=== PATIENT | female | born 1975 | race Caucasian/White ===

== ENCOUNTER 2018-01-20 14:57 | Emergency (ER) | payer OTHER ==
[2018-01-20 15:07] VITALS: BMI 22.8
[2018-01-20 15:09] VITALS: TEMP 98.1
[2018-01-20] MEDS ORDERED: Naproxen 550 mg Tab PO STA (15:47)
[2018-01-20] MEDS ORDERED: Naproxen 550 mg Tab PO ONE (15:53)
--- NOTE | 2018-01-20 16:19 | C.PDOC ---
History Of Present Illness Patient presents to ED c/o right foot pain and right outer thigh pain. She states she was standing of a chair, when she fell off of it into her left thigh/ hip, and the chair hit her in the left foot. She denies head injury, LOC, chest pain, neck pain, SOB, abdominal pain, sensory changes. Time Seen by Provider: 01/20/18 15:22 Chief Complaint (Nursing): Lower Extremity Problem/Injury History Per: Patient, Family History/Exam Limitations: no limitations, language barrier Onset/Duration Of Symptoms: Days (x 1 week ) Current Symptoms Are (Timing): Still Present Severity: Mild Past Medical History Reviewed: Historical Data, Nursing Documentation, Vital Signs Vital Signs: Last Vital Signs Temp 98.1 F 01/20/18 15:23 Pulse 68 01/20/18 16:39 Resp 18 01/20/18 16:39 BP 118/79 01/20/18 16:39 Pulse Ox 99 01/21/18 08:51 - Medical History PMH: No Chronic Diseases Family History: States: No Known Family Hx - Social History Hx Alcohol Use: No Hx Substance Use: No - Immunization History Hx Tetanus Toxoid Vaccination: No Hx Influenza Vaccination: No Hx Pneumococcal Vaccination: No Review Of Systems Constitutional: Negative for: Fever, Chills Cardiovascular: Negative for: Chest Pain Respiratory: Negative for: Shortness of Breath Gastrointestinal: Negative for: Abdominal Pain Musculoskeletal: Positive for: Other (LEFT THIGH AND LEFT FOOT PAIN) Skin: Negative for: Rash Neurological: Negative for: Weakness, Numbness, Headache, Dizziness Physical Exam - Physical Exam Appears: Well, Non-toxic, No Acute Distress Skin: Other (approx 5cm healing ecchymosis on left lateral thigh/hip, no deformity) Head: Atraumatic, Normacephalic Eye(s): bilateral: Normal Inspection Oral Mucosa: Moist Neck: Normal, Normal ROM, No Midline Cervical Tenderness, No Paracervical Tenderness, No Step Off Deformity, Supple Cardiovascular: Rhythm Regular Respiratory: Normal Breath Sounds, No Rales, No Rhonchi, No Wheezing Gastrointestinal/Abdominal: Normal Exam, Bowel Sounds, Soft, No Tenderness Extremity: Normal ROM, No Calf Tenderness, Capillary Refill (< 2 sec all digits ), Other (left foot mild TTP at proximal 2enf metatarsal, small ecchymosis present, no deformity or swelling ) Extremity: Bilateral: Normal Color And Temperature, Normal ROM Pulses: Left Dorsalis Pedis: Normal, Right Dorsalis Pedis: Normal Neurological/Psych: Oriented x3, Normal Motor, Normal Sensation Gait: Steady ED Course And Treatment O2 Sat by Pulse Oximetry: 99 (RA) Pulse Ox Interpretation: Normal - Other Rad left foot Xray X-Ray: Interpreted by Me, Viewed By Me (no fx/dislocation) left hip/pelvis xray X-Ray: Interpreted by Me, Viewed By Me (no fx/dislocation) Progress Note: Xrays of left foot and left hip ordered and reviewed. Patient given PO Naprosyn. Xrays neg for acute bony injury. Patient reassured and instructed to follow up with PMD/clinic in 1-2 days. Rx for Naprosyn given. Patient understands she should return to ED if her symptoms worsen. Reevaluation Time: 16:20 Reassessment Condition: Improved Disposition Counseled Patient/Family Regarding: Diagnosis, Need For Followup, Rx Given - Disposition Referrals: [facility] at [facility] [Outside] Disposition: HOME/ ROUTINE Disposition Time: 16:20 Condition: STABLE Additional Instructions: FOLLOW UP WITH YOUR DOCTOR OR CLINIC IN 1-2 DAYS USE MEDICATION FOR PAIN NEEDED RETURN TO ER IF SYMPTOMS WORSEN Prescriptions: Naproxen 375 mg PO BID PRN #20 tablet PRN Reason: pain Instructions: Contusion (DC), Hip Pain (DC), Foot Sprain (DC) Forms: [employer] (Estonian) Print Language: ESTONIAN - POA Present On Arrival: Falls Or Trauma - Clinical Impression Clinical Impression: Sprain of left foot, Contusion of left thigh
--- NOTE | 2018-01-20 16:29 | RAD ---
PROCEDURE: Left Hip and Pelvis X-ray Radiographs. HISTORY: LEFT HIP/THIGH PAIN AFTER FALL COMPARISON: None. FINDINGS: BONES: No acute fracture or destructive bony lesion identified, including the pelvic ring. JOINTS: No dislocation subluxation left hip joint with right hip joint appear unremarkable in the anterior posterior projection. Pubic bones appear intact including pubic symphysis. SOFT TISSUES: Normal. OTHER FINDINGS: None. IMPRESSION: Unremarkable left hip and pelvis radiographs.
--- NOTE | 2018-01-20 16:30 | RAD ---
Date of service: 01/20/2018 PROCEDURE: Left Foot Radiographs. HISTORY: LEFT FOOT PAIN AFTER INJURY COMPARISON: None. FINDINGS: BONES: No acute fracture or destructive bony lesion identified. A bone island is seen at the distal 4th metatarsal bone. JOINTS: Normal. SOFT TISSUES: Normal. OTHER FINDINGS: None. IMPRESSION: No acute fracture or dislocation left foot. No destructive bony lesion identified.
[2018-01-20 16:41] VITALS: BP 118/79; PULSE 68; RESP 18
[2018-01-21 08:48] VITALS: O2SAT 99
== END 2018-01-20 16:41 | disposition home or self-care (01) ==
LOC: C.ER 14:57
DX: S93.602A Unspecified sprain of left foot, initial encounter (principal); S70.12XA Contusion of left thigh, initial encounter; W07.XXXA Fall from chair, initial encounter